=== PATIENT | male | born 1980 | race Caucasian/White ===

== ENCOUNTER 2016-11-16 14:42 | Emergency (ER) | payer SELFPAY ==
[2016-11-16 15:14] VITALS: BP 116/78
[2016-11-16] MEDS ORDERED: AMOX1TAB61 PO (15:32)
[2016-11-16] MEDS ORDERED: PROAIR RESPICL90 MCG IH (15:32)
[2016-11-16] MEDS ORDERED: PRED50TA PO (15:32)
[2016-11-16] MEDS ORDERED: BENZ100C PO (15:32)
--- NOTE | 2016-11-16 15:32 | PHYS DOC ---
Past Medical History Past Medical History: No Pertinent History Additional Past Medical Histor: chronic back, marfan syndrome Past Surgical History: Tonsillectomy Additional Information: 1 ppd Alcohol Use: None Drug Use: None Adult General Chief Complaint Chief Complaint: COUGH HPI HPI Patient is a 36 year old male who presents with a productive cough nasal congestion sinus headache for the last 3 weeks. Patient states he has history of smoking and has been cutting back. Patient denies any fevers. Review of Systems Review of Systems Constitutional: See history of present illness Eyes: Denies change in visual acuity, redness, or eye pain [] HENT: Nasal congestion Respiratory: cough Cardiovascular: No additional information not addressed in HPI [] GI: Denies abdominal pain, nausea, vomiting, bloody stools or diarrhea [] : Denies dysuria or hematuria [] Musculoskeletal: Denies back pain or joint pain [] Integument: Denies rash or skin lesions [] Neurologic: Denies headache, focal weakness or sensory changes [] Endocrine: Denies polyuria or polydipsia [] Allergies Allergies Allergies Coded Allergies Type Severity Reaction Last Updated Verified No Known Drug Allergies 02/03/14 No Physical Exam Physical Exam Constitutional: Well developed, well nourished, no acute distress, non-toxic appearance. [] HENT: Normocephalic, atraumatic, bilateral external ears normal, oropharynx moist, no oral exudates, nose normal. [] Bilateral nasal turbinates are boggy and erythematous with mild amount of clear rhinorrhea Patient sounds congested nasally Mild frontal and maxillary sinus tenderness on exam. Eyes: PERRLA, EOMI, conjunctiva normal, no discharge. [] Neck: Normal range of motion, no tenderness, supple, no stridor. [] Cardiovascular:Heart rate regular rhythm, no murmur [] Lungs & Thorax: Bilateral breath sounds clear to auscultation [] Abdomen: Bowel sounds normal, soft, no tenderness, no masses, no pulsatile masses. [] Skin: Warm, dry, no erythema, no rash. [] Back: No tenderness, no CVA tenderness. [] Extremities: No tenderness, no cyanosis, no clubbing, ROM intact, no edema. [] Neurologic: Alert and oriented X 3, normal motor function, normal sensory function, no focal deficits noted. [] Psychologic: Affect normal, judgement normal, mood normal. [] Current Patient Data Vital Signs Vital Signs Date Time Temp Pulse Resp B/P Pulse Ox O2 Delivery O2 Flow Rate FiO2 11/16/16 15:14 98.3 71 18 100 Room Air 98.3 EKG EKG [] Radiology/Procedures Radiology/Procedures [] Course & Med Decision Making Course & Med Decision Making Pertinent Labs and Imaging studies reviewed. (See chart for details) Examination shows patient has bronchitis and sinus infection. Discharged with Augmentin, prednisone for 5 days, Tessalon Perles and albuterol inhaler. Encouraged to consider smoking cessation. Follow-up with his own PCP in one week. Provided return precautions and discharged in stable condition. Dragon Disclaimer Dragon Disclaimer This electronic medical record was generated, in whole or in part, using a voice recognition dictation system. Departure Departure Impression: Primary Impression: Acute sinusitis Additional Impressions: Smoking addiction Acute bronchitis Disposition: HOME, SELF-CARE Condition: STABLE Referrals: NO PCP (PCP) Follow-up with your own primary care doctor in one week Patient Instructions: Acute Bronchitis, Sinusitis Additional Instructions: You were seen for symptoms consistent of bronchitis and a sinus infection. Consider smoking cessation. Complete your antibiotics. Use the prescribed medicines as ordered. Follow-up with your primary care doctor in 1-2 weeks. Come back to the emergency room at any point symptoms worsen or you have concerning symptoms. Scripts Amoxicillin/Potassium Clav (Augmentin 875-125 Tablet)1 Each Tablet1 Tab PO BID # 20 TAB Prov:ESTELA AVILEZ SENIOR UI DESIGNER 11/16/16 Prednisone 50 Mg Tablet1 Tab PO DAILY #5 TAB Prov:MUTUNGAESTELA SENIOR UI DESIGNER 11/16/16 Benzonatate (Tessalon Perle)100 Mg Capsule1 Cap PO TID #30 CAP Prov:MUTUNGAESTELA SENIOR UI DESIGNER 11/16/16 Albuterol Sulfate (Proair Respiclick)90 Mcg Aer.pow.ba1 Puff IH PRN Q6HRS PRN SHORTNESS OF BREATH #1 INHALER Prov:ESTELA AVILEZ SENIOR UI DESIGNER 11/16/16 Problem Qualifiers Primary Impression: Acute sinusitis Sinusitis location: unspecified location Recurrence: non-recurrent Qualified Code: J01.90 - Acute sinusitis, unspecified Additional Impressions: Acute bronchitis Bronchitis organism: unspecified organism Qualified Code: J20.9 - Acute bronchitis, unspecified MUTUNGAESTLEA SENIOR UI DESIGNER Nov 16, 2016 15:32
== END 2016-11-16 15:35 | disposition home or self-care (01) ==
LOC: ER 14:42
DX: J01.90 Acute sinusitis, unspecified (principal); J20.9 Acute bronchitis, unspecified; Q87.40 Marfan syndrome, unspecified; G89.29 Other chronic pain; F17.200 Nicotine dependence, unspecified, uncomplicated
CPT/HCPCS: 99283

== ENCOUNTER 2021-12-01 07:57 | Emergency (ER) | payer OTHER ==
[~2021-12-01] VITALS: Ht 185.4 cm; Wt 60.0 kg
[~2021-12-01 07:57] MED LIST: AMOX1TAB61 PO; BENZ100C PO; PRED50TA PO; PROAIR RESPICL90 MCG IH
[2021-12-01 08:21] VITALS: BP 126/67
--- NOTE | 2021-12-01 09:01 | PHYS DOC ---
Past Medical History Past Medical History: No Pertinent History Additional Past Medical Histor: SMALL BOWEL OBSTRUCTION Past Surgical History: Appendectomy Smoking Status: Current Every Day Smoker Alcohol Use: None Drug Use: None, Marijuana General Adult EDM: Chief Complaint: BACK PAIN - NO INJURY HPI: HPI: Patient is a 41 year old male without pertinent past medical history who presents with low back pain. States that he has a history of chronic low back pain that radiates towards his hips. Sees a chiropractor regularly for this. 1 week ago was shoveling lots of snow. The next morning awoke and had worsening back pain with pain radiating down behind his right leg. Radiates all the way to the foot. Worse with movement. Has not tried any home medications. No fevers or chills. No IVDU. No history of spinal surgery. No lower extremity weakness or numbness. No bowel or bladder incontinence or retention. No saddle anesthesia. No trauma Review of Systems: Review of Systems: Constitutional: Denies fever or chills. [] Eyes: Denies change in visual acuity. [] HENT: Denies nasal congestion or sore throat. [] Respiratory: Denies cough or shortness of breath. [] Cardiovascular: Denies chest pain or edema. [] GI: Denies abdominal pain, nausea, vomiting, bloody stools or diarrhea. [] : Denies dysuria. [] Musculoskeletal: Reports right-sided low back pain with radiation of the leg Integument: Denies rash. [] Neurologic: Denies headache, focal weakness or sensory changes. [] Endocrine: Denies polyuria or polydipsia. [] Lymphatic: Denies swollen glands. [] Psychiatric: Denies depression or anxiety. [] Heart Score: C/O Chest Pain: No Allergies: Allergies: Allergies Coded Allergies Type Severity Reaction Last Updated Verified No Known Drug Allergies 02/03/14 No Physical Exam: PE: Constitutional: Well developed, well nourished, no acute distress, non-toxic appearance. [] HENT: Normocephalic, atraumatic Neck: Normal range of motion, no tenderness, supple, no stridor. [] Cardiovascular:Heart rate regular rhythm, no murmur [] Lungs & Thorax: Normal work of breathing Abdomen: Bowel sounds normal, soft, no tenderness, no masses, no pulsatile masses. [] Skin: Warm, dry, no erythema, no rash. [] Back: No spinal or paraspinal tenderness in the thoracic or lumbar back Extremities: No tenderness, no cyanosis, no clubbing, ROM intact, no edema. 2+ DP pulses bilaterally. [] Neurologic: Alert and oriented X 3, normal motor function, normal sensory function, no focal deficits noted. [] Specifically 5/5 strength in bilateral: -Hip flexion -Knee flexion/extension -Ankle plantar/dorsiflexion -Dorsiflexion of great toes Psychologic: Affect normal, judgement normal, mood normal. [] Current Patient Data: Vital Signs: Vital Signs Date Time Temp Pulse Resp B/P (MAP) Pulse Ox O2 Delivery O2 Flow Rate FiO2 12/01/21 08:21 97.4 53 16 126/67 (86) 98 97.4 EKG: EKG: [] Radiology/Procedures: Radiology/Procedures: [] Course & Med Decision Making: Course & Med Decision Making Pertinent Labs and Imaging studies reviewed. (See chart for details) Patient 41-year-old male who presents with symptoms of right-sided lumbosacral radiculopathy. No back pain red flags. Motor intact on exam. No trauma. Does not require emergent imaging. He has not tried any OTC medications. I have advised NSAID treatment as the foundation of symptomatic management with tylenol as an adjunct. Reviewed red flag symptoms with patient and need for return if they arise. Jonatan Disclaimer: Jonatan Disclaimer: This electronic medical record was generated, in whole or in part, using a voice recognition dictation system. Departure Departure Impression: Primary Impression: Lumbosacral radiculopathy Disposition: HOME / SELF CARE / HOMELESS Condition: STABLE Patient Instructions: Lumbosacral Radiculopathy Additional Instructions: Treatment is aimed at reducing inflammation in your back and around your spinal nerve roots. Ibuprofen is a strong anti-inflammatory medication. For pain tylenol and ibuprofen are best used on a schedule. Please alternate between the two. -Tylenol 1000 mg every 6 hours (do not exceed 4000 mg in one day) -Ibuprofen 600 mg every 6 hours. Take with food. Since you do not have a PCP, please call the number for the [facility] at [phone]. They can help you with physical therapy if needed, or try other medications if ibuprofen is not working. Please return to the emergency department if you lose function of your bowel/bladder, have severe weakness in your legs, have numbness around rectum, high fever/shaking chills, or other new/concerning symptoms arise. Scripts No Active Prescriptions or Reported Meds SARBJIT TERAN MD Dec 01, 2021 09:01
== END 2021-12-01 09:02 | disposition home or self-care (01) ==
LOC: ER 07:57
DX: M54.17 Radiculopathy, lumbosacral region (principal); G89.29 Other chronic pain; Z90.89 Acquired absence of other organs; F17.200 Nicotine dependence, unspecified, uncomplicated
CPT/HCPCS: 99281

== ENCOUNTER 2021-12-10 19:13 | Emergency (ER) | payer OTHER ==
[~2021-12-10] VITALS: Ht 185.4 cm; Wt 61.4 kg
[2021-12-10 19:38] VITALS: BP 137/83
--- NOTE | 2021-12-10 20:05 | PHYS DOC ---
Past Medical History Past Medical History: No Pertinent History Additional Past Medical Histor: SMALL BOWEL OBSTRUCTION Past Surgical History: Appendectomy Smoking Status: Current Every Day Smoker Alcohol Use: None Drug Use: None, Marijuana General Adult EDM: Chief Complaint: LOWER EXT PAIN HPI: HPI: Patient is a 41-year-old male presents to the emergency department complaining of sciatica flareup of the right low back area for the past month, patient reports he has been seeing his chiropractor with out good relief as he has in the past. Patient reports a current 6 out of 10 pain, reports his pain does raise to a 10 out of 10 when he ambulates, patient reports pain to the right low back that radiates into his buttocks and down midway back of right thigh. Patient denies recent injury, denies history of immunosuppression, cancers, recent fever or chills, denies numbness or tingling to his genitals or buttocks, denies bowel or bladder incontinence or retention, reports he becomes very difficult when he walks, states he takes Tylenol and/or Motrin at home for discomfort but has run out recently. Patient states he does not have a primary care physician, does not take prescription medications, does not have a surgical history. Patient denies chest pains, chest or nasal congestion, denies dizzi ness, syncopal or near syncopal episodes, denies rash to his skin. Patient denies other physical complaints or physical concerns. Patient is asking for work excuse. Review of Systems: Review of Systems: 14 body systems of review of systems have been reviewed. See HPI for pertinent positives and negative responses, otherwise all other systems are negative, nonpertinent or noncontributory. Constitutional: Negative except as outlined in HPI above. Skin: Negative except as outlined in HPI above. Eyes: Negative except as outlined in HPI above. HENT: Negative except as outlined in HPI above. Respiratory: Negative except as outlined in HPI above. Cardiovascular: Negative except as outlined in HPI above. GI: Negative except as outlined in HPI above. : Negative except as outlined in HPI above. Musculoskeletal: Negative except as outlined in HPI above. Integument: Negative except as outlined in HPI above. Neurologic: Negative except as outlined in HPI above. Endocrine: Negative except as outlined in HPI above. Lymphatic: Negative except as outlined in HPI above. Psychiatric: Negative except as outlined in HPI above. Heart Score: C/O Chest Pain: No Risk Factors: Risk Factors: DM, Current or recent (<one month) smoker, HTN, HLP, family history of CAD, obesity. Risk Scores: Score 0 - 3: 2.5% MACE over next 6 weeks - Discharge Home Score 4 - 6: 20.3% MACE over next 6 weeks - Admit for Clinical Observation Score 7 - 10: 72.7% MACE over next 6 weeks - Early Invasive Strategies Allergies: Allergies: Allergies Coded Allergies Type Severity Reaction Last Updated Verified No Known Drug Allergies 02/03/14 No Physical Exam: PE: Constitutional: Well developed, well nourished, no acute distress, non-toxic appearance. 41-year-old male in no apparent distress. Patient's complaint of pain level exceeds patient's physical appearance and examination. HENT: Normocephalic, atraumatic. Eyes: Conjunctiva normal, no discharge. Neck: Normal range of motion, no stridor. Cardiovascular: No cyanosis appreciated, distal cap refill less than 2 seconds. Lungs & Thorax: Patient is in no respiratory distress, no audible adventitious lung sounds appreciated. Abdomen: Nontender, no abnormalities noted. Skin: Warm, dry, no erythema, no rash. Back: There are no deformities present, no skin discoloration of the back, there is no midline spinal tenderness, no right-sided or left-sided CVA TTP, there is pain to palpation of the right low lumbar muscular structures. There is no crepitus or deformities appreciated Extremities: No tenderness, no cyanosis, no clubbing, ROM intact, no edema. 5 out of 5 motor strength of lower extremities bilaterally with hip extension, knee extension/flexion/abduction, plantar/dorsiflexion at the ankle and dorsiflexion of the toes bilaterally. Neurologic: Alert and oriented X 3, normal motor function, normal sensory function, no focal deficits noted. Psychologic: Affect normal, judgement normal, mood normal. Current Patient Data: Vital Signs: Vital Signs Date Time Temp Pulse Resp B/P (MAP) Pulse Ox O2 Delivery O2 Flow Rate FiO2 12/10/21 19:38 98.3 85 18 137/83 (101) 98 Room Air 98.3 EKG: EKG: [] Radiology/Procedures: Radiology/Procedures: [] Course & Med Decision Making: Course & Med Decision Making Pertinent Labs and Imaging studies reviewed. (See chart for details) 41-year-old male, vital signs reviewed, presents emerged from concerning sciatica flareup. Physical examination is consistent with lumbago, will give IM Depo-Medrol, p.o. pain medication, discussed with patient strict follow-up with primary care, pain management for ongoing sciatica problems. Patient gave verbal understanding of and is amenable to ED discharge planning. Patient does have 5 out of 5 motor strength with hip flexion, knee flexion/extension/adduction, plantar/dorsiflexion at the ankle and dorsiflexion of the toes bilaterally, there is no history of IV drug abuse, immunosuppression, cancers, fevers or chills, saddle anesthesia, bowel/bladder incontinence/retention, or recent trauma that would necessitate emergent imaging. Discussed with the patient all findings and diagnostic testing as well as the need to follow-up with their primary care provider for further evaluation and treatment or return to the ED if any new or worsening symptoms. Strict return precautions were also discussed at length, the patient voiced understanding and agreement with the discharge planning. The patient was nontoxic in appearance, in no apparent distress, and hemodynamically stable at the time of disposition. Dragon Disclaimer: Dragon Disclaimer: This electronic medical record was generated, in whole or in part, using a voice recognition dictation system. Departure Departure Impression: Primary Impression: Lumbago Qualified Codes: M54.41 - Lumbago with sciatica, right side; G89.29 - Other chronic pain Disposition: HOME / SELF CARE / HOMELESS Condition: GOOD Referrals: NO PCP (PCP) YANA CORBIN MD Patient Instructions: Sciatica Scripts Prednisone (PREDNISONE) 20 Mg Tablet 1 TAB PO UD for back pain, #15 TAB 0 Refills Take 2 tablets daily on days 1 through 5, then reduce to 1 tablet each day on days 6 through 10. Prov: VIKTORIA QUEVEDO APRN 12/10/21 Ibuprofen (IBUPROFEN) 600 Mg Tablet 600 MG PO PRN Q6HRS PRN for INFLAMMATION, #30 TAB 0 Refills Prov: VIKTORIA QUEVEDO APRN 12/10/21 VIKTORIA QUEVEDO APRN Dec 10, 2021 20:05
[2021-12-10] MEDS ORDERED: methylPREDNISolone ACETATE 80 MG/ML VIAL. IM ONE (20:30)
[2021-12-10] MEDS ORDERED: HYDROcodone/APAP 5/325MG 1 TAB TABLET PO ONE (20:30)
[2021-12-10] MEDS ORDERED: IBUPROFEN 200 MG TABLET. PO ONE (20:30)
[2021-12-10] MEDS ORDERED: TRIAMCINOLONE ACETONIDE 40 MG/ML VIAL. INT ART ONE (20:30)
[2021-12-10] MEDS ORDERED: IBUP-1007 PO (21:09)
[2021-12-10] MEDS ORDERED: PRED20TA PO (21:09)
== END 2021-12-10 21:20 | disposition home or self-care (01) ==
LOC: ER 19:13
DX: M54.41 Lumbago with sciatica, right side (principal); G89.29 Other chronic pain; F17.200 Nicotine dependence, unspecified, uncomplicated; Z90.89 Acquired absence of other organs
CPT/HCPCS: 99284; J3301

== ENCOUNTER → 2022-01-16 | Outpatient (CLI) | payer OTHER ==
[~2022-01-16] MED LIST changes: +HYDR-2765 PO; +IBUP-1007 PO; +PRED20TA PO; +TIZA-75 PO; +TRAM50TA PO
[2022-01-16 16:53] LABS: BASO # 0.1 x10^3/uL (0.0-0.2); BASO % 1 % (0-3); EOS # 0.4 x10^3/uL (0.0-0.7); EOS % 4 % (0-3); HEMATOCRIT 46.1 % (39.0-53.0); HEMOGLOBIN 15.7 g/dL (13.0-17.5); LYMPH # 3.7 x10^3/uL (1.0-4.8); LYMPH % 36 % (24-48); MEAN CORPUSCULAR HEMOGLOBIN 30 pg (25-35); MEAN CORPUSCULAR HGB CONC 34 g/dL (31-37); MEAN CORPUSCULAR VOLUME 88 fL (79-100); MONO # 0.7 x10^3/uL (0.0-1.1); MONO % 7 % (0-9); NEUT # 5.5 x10^3/uL (1.8-7.7); NEUT % 53 % (31-73); PLATELET COUNT 208 x10^3/uL (140-400); RED BLOOD COUNT 5.22 x10^6/uL (4.30-5.70); WHITE BLOOD COUNT 10.3 x10^3/uL (4.0-11.0)
[2022-01-16 17:05] LABS: ALBUMIN 3.9 g/dL (3.4-5.0); ALBUMIN/GLOBULIN RATIO 1.2 (1.0-1.7); CALCIUM 9.5 mg/dL (8.5-10.1); GFR 82.3; POTASSIUM 3.8 mmol/L (3.5-5.1); TOTAL BILIRUBIN 0.3 mg/dL (0.2-1.0); TOTAL PROTEIN 7.2 g/dL (6.4-8.2)
== END ==
LOC: SURGPAT 15:25
PROVIDERS: ATTEND Neurological Surgery
DX: Z01.812 Encounter for preprocedural laboratory examination (principal); M51.16 Intervertebral disc disorders with radiculopathy, lumbar region; Z20.822 Contact with and (suspected) exposure to COVID-19
CPT/HCPCS: 80053; 85025; 87641; U0003